=== PATIENT | male | born 2000 | race Caucasian/White ===

== ENCOUNTER 2023-02-09 21:04 | Emergency (ER) | payer BC, OTHER ==
[2023-02-09 21:07] VITALS: RESP 16; TEMP 98.7
[2023-02-09] MEDS ORDERED: BACITRACIN OINT 1 EACH PACKET TOPICAL ONE (22:25)
[2023-02-09] MEDS ORDERED: CEPHALEXIN 500 MG CAP PO STA (22:26)
--- NOTE | 2023-02-09 22:30 | ED ---
Lower Extremity Injury HPI - General Chief Complaint: Extremity Injury, Lower Stated Complaint: Left big toe infection Time Seen by Provider: 02/09/23 21:10 Source: patient Mode of arrival: ambulatory Limitations: no limitations - History of Present Illness Initial Comments: 22-year-old male presents to the emergency department reporting possible infect ion of his left great toe. States that the patient attempted to cut his nails a couple of days ago. Since then the patient has noted increasing redness, swelling and pain to the medial aspect of the left toe. He has been putting triple antibiotic ointment to the site without any improvement. He denies any injuries. No fevers. Has been obtaining pustular drainage from the site. No other alleviating, mind reader modifying factors - Related Data Previous Rx's Medication Instructions Recorded Bacitracin Zinc Oint 1 applic TOPICAL BID #28 gm 02/09/23 Cephalexin [Keflex] 500 mg PO Q6HR #28 cap 02/09/23 Allergies Allergy/AdvReac Type Severity Reaction Status Date / Time No Known Allergies Allergy Verified 02/09/23 21:07 Review of Systems ROS Statement: Those systems with pertinent positive or pertinent negative responses have been documented in the HPI. ROS Other: All systems not noted in ROS Statement are negative. General Exam Limitations: no limitations General appearance: alert, in no apparent distress Extremities exam: Present: other (Paronychia noted to the medial aspect of the left great toe. No bleeding. Mild pustular drainage. Nail intact) Neurological exam: Present: alert, oriented X3, CN II-XII intact Psychiatric exam: Present: normal affect, normal mood Skin exam: Present: warm, dry, intact, normal color. Absent: rash Course Vital Signs 02/09/23 02/09/23 21:05 22:55 Temperature 98.7 F Pulse Rate 74 78 Respiratory 16 16 Rate Blood Pressure 139/88 128/79 O2 Sat by Pulse 97 98 Oximetry Medical Decision Making - Medical Decision Making Was pt. sent in by a medical professional or institution (LEODAN Rodriguez, POURED WALL FOREMAN, urgent care, hospital, or intermediate...) When possible be specific @ -No Did you speak to anyone other than the patient for history (EMS, parent, family, police, friend...)? What history was obtained from this source @ -No Did you review nursing and triage notes (agree or disagree)? Why? @ -I reviewed and agree with nursing and triage notes Were old charts reviewed (outside hosp., previous admission, EMS record, old EKG, old radiological studies, urgent care reports/EKG's, intermediate records)? Report findings @ -No old charts were reviewed Differential Diagnosis (chest pain, altered mental status, abdominal pain women, abdominal pain men, vaginal bleeding, weakness, fever, dyspnea, syncope, headache, dizziness, GI bleed, back pain, seizure, CVA, palpatations, mental health, musculoskeletal)? @ -Paronychia, felon, cellulitis, ingrown nail EKG interpreted by me (3pts min.). @ -Not completed X-rays interpreted by me (1pt min.). @ -None done CT interpreted by me (1pt min.). @ -None done U/S interpreted by me (1pt. min.). @ -None done What testing was considered but not performed or refused? (CT, X-rays, U/S, labs)? Why? @ -None What meds were considered but not given or refused? Why? @ -None Did you discuss the management of the patient with other professionals (professionals i.e. , PA, POURED WALL FOREMAN, lab, RT, psych nurse, hospital social worker, node js developer, teacher, patrol community service officer, assistant case manager)? Give summary @ -No Was smoking cessation discussed for >3mins.? @ -No Was critical care preformed (if so, how long)? @ -No Were there social determinants of health that impacted care today? How? (Homelessness, low income, unemployed, alcoholism, drug addiction, transportation, low edu. Level, literacy, decrease access to med. care, snf, rehab)? @ -No Was there de-escalation of care discussed even if they declined (Discuss DNR or withdrawal of care, Hospice)? DNR status @ -No What co-morbidities impacted this encounter? (DM, HTN, Smoking, COPD, CAD, Cancer, CVA, ARF, Chemo, Hep., AIDS, mental health diagnosis, sleep apnea, morbid obesity)? @ -None Was patient admitted / discharged? Hospital course, mention meds given and route, prescriptions, significant lab abnormalities, going to OR and other pertinent info. @ -Upon arrival patient was placed in room 31. A thorough history and physical exam was performed. The digit was cleansed. I did use an 11 blade scalpel to attempt further drainage of the paronychia. I obtained a wound culture. Bacitracin is placed to the site. Patient will be discharged home with bacitracin and Keflex. Instructed to take the medications as directed. Recommended epsom salt foot soaks to be completed 3 times daily. He is given a postop shoe. Instructed to keep area clean and dry. Follow-up with podiatry for further management and return for any new or worsening symptoms. Patient was agreeable to this plan and he was discharged in stable condition Undiagnosed new problem with uncertain prognosis? @ -No Drug Therapy requiring intensive monitoring for toxicity (Heparin, Nitro, Insulin, Cardizem)? @ -No Were any procedures done? @ -No Diagnosis/symptom? @ -Acute paronychia left great toe Acute, or Chronic, or Acute on Chronic? @ -Acute Uncomplicated (without systemic symptoms) or Complicated (systemic symptoms)? @ -Uncomplicated Side effects of treatment? @ -No Exacerbation, Progression, or Severe Exacerbation? @ -No Poses a threat to life or bodily function? How? (Chest pain, [place], [place], pneumonia, PE, COPD, DKA, ARF, appy, cholecystitis, CVA, Diverticulitis, Homicidal, Suicidal, threat to staff... and all critical care pts) @ -No Disposition Clinical Impression: Paronychia Disposition: HOME SELF-CARE Condition: Stable Instructions (If sedation given, give patient instructions): Paronychia (ED) Additional Instructions: Take the antibiotics as directed. Use bacitracin to the site. Do epsom salt soaks 3 times daily for 10 minutes. Express the area to push out any pus. Keep the area clean. Follow up with the physical geographer for further treatment Prescriptions: Bacitracin Zinc Oint 1 applic TOPICAL BID #28 gm Cephalexin [Keflex] 500 mg PO Q6HR #28 cap Is patient prescribed a controlled substance at d/c from ED?: No Referrals: Marky Montes MD [Primary Care Provider] - 1-2 days Hamzah Maria DPM [Doctor of Osteopathic Medicine] - 1-2 days Time of Disposition: 22:30
[2023-02-09 22:56] VITALS: BP 128/79; PULSE 78
== END 2023-02-09 22:56 | disposition home or self-care (01) ==
LOC: EC 21:04
DX: L03.032 Cellulitis of left toe (principal); B95.61 Methicillin susceptible Staphylococcus aureus infection as the cause of diseases classified elsewhere
CPT/HCPCS: 87070; 87077; 87186; 87205; 99283

== ENCOUNTER 2024-06-29 22:02 | Emergency (ER) | payer BC ==
[2024-06-29 22:09] VITALS: BP 122/85; TEMP 97.5
[2024-06-29] MEDS: predniSONE 20 MG TAB PO STA (22:54)
[2024-06-29] MEDS: LORazepam 0.5 MG TAB PO STA (22:55)
--- NOTE | 2024-06-29 23:11 | ED ---
General Adult HPI - General Source: patient, RN notes reviewed, old records reviewed Mode of arrival: ambulatory Limitations: no limitations <Hamzah Anderson - Last Filed: 06/30/24 00:16> <Marvel Resendiz - Last Filed: 06/30/24 00:45> - General Chief complaint: Psychiatric Symptoms Stated complaint: Mental health Time Seen by Provider: 06/29/24 22:40 - History of Present Illness Initial comments: Patient is a 24-year-old male who presents emergency department complaining of nasal drainage ongoing for weeks which is causing his OCD to become more severe. His OCD has been more debilitating. States he is having issues just starting his day and getting out of bed as the postnasal drip is sending him spiraling. States this is somewhat chronic. Denies any cough or fevers. Denies any sick contacts. Does not follow-up with a psychiatrist or therapist. Has been compliant with medications. Presents with his mother over concern for his worsening OCD. He has not required inpatient psychiatric care in the past. Presents for further evaluation.Patient endorses passive suicidal ideations, paraphrasing him that it would be easier to manage if he did not wake up. (Hamzah Anderson) - Related Data Previous Rx's Medication Instructions Recorded Bacitracin Zinc Oint 1 applic TOPICAL BID #28 gm 02/09/23 Cephalexin [Keflex] 500 mg PO Q6HR #28 cap 02/09/23 predniSONE [Deltasone] 20 mg PO DAILY 4 Days #4 tab 06/30/24 Allergies Allergy/AdvReac Type Severity Reaction Status Date / Time No Known Allergies Allergy Verified 06/29/24 22:04 Review of Systems ROS Other: All systems not noted in ROS Statement are negative. <Hamzah Anderson - Last Filed: 06/30/24 00:16> ROS Other: All systems not noted in ROS Statement are negative. <Marvel Resendiz - Last Filed: 06/30/24 00:45> ROS Statement: Those systems with pertinent positive or pertinent negative responses have been documented in the HPI. Review of Systems: CONST: Denies fever EYES: Denies blurry vision ENT: Denies nasal congestion C/V: Denies Chest pain RESP: Denies shortness of breath GI: Denies abdominal pain : Denies dysuria SKIN: Denies rash. MSK: Denies joint pain. NEURO: Denies headache (JustinHamzah) Past Medical History Past Medical History: No Reported History History of Any Multi-Drug Resistant Organisms: None Reported Additional Past Surgical History / Comment(s): eye Past Psychological History: No Psychological Hx Reported Smoking Status: Never smoker Past Alcohol Use History: Occasional Past Drug Use History: Marijuana <Hamzah Anderson - Last Filed: 06/30/24 00:16> General Exam Limitations: no limitations <Hamzah Anderson - Last Filed: 06/30/24 00:16> - General Exam Comments Initial Comments: General: Appears anxious HEAD: Normal with no signs of head trauma. EYES: EOMI. ENT: Hearing grossly intact. Posterior oropharynx within normal limits. No sinus tenderness to palpation. Uvula is midline. No rhinorrhea. RESPIRATORY: No respiratory distress. Clear breath sounds bilaterally. No hypoxia. C/V: Regular rate and rhythm. S1 and S2 auscultated. ABD: Abdomen is nondistended. EXT: No obvious deformity. SKIN: No rashes or lesions observed on exposed skin. NEURO: Alert and oriented. (JustinHamzah) Course Vital Signs 06/29/24 22:03 Temperature 97.5 F L Pulse Rate 95 Respiratory 18 Rate Blood Pressure 122/85 O2 Sat by Pulse 100 Oximetry Medical Decision Making <Hamzah Anderson - Last Filed: 06/30/24 00:16> - Medical Decision Making Was pt. sent in by a medical professional or institution (LEODAN Rodriguez, MONEY LAUNDERING INVESTIGATOR, urgent care, hospital, or fpc...) When possible be specific @ -No Did you speak to anyone other than the patient for history (EMS, parent, family, police, friend...)? What history was obtained from this source @ -Patient's mother presents at bedside and assist with patient's past medical history. Did you review nursing and triage notes (agree or disagree)? Why? @ -I reviewed and agree with nursing and triage notes Were old charts reviewed (outside hosp., previous admission, EMS record, old EKG, old radiological studies, urgent care reports/EKG's, fpc records)? Report findings @ -No old charts were reviewed Differential Diagnosis (chest pain, altered mental status, abdominal pain women, abdominal pain men, vaginal bleeding, weakness, fever, dyspnea, syncope, headache, dizziness, GI bleed, back pain, seizure, CVA, palpatations, mental health, musculoskeletal)? @ -Differential Mental Health Depression, anxiety, bipolar, psychosis, schizophrenia, borderline personality, situational depression, adjustment disorder, behavioral disorder, brain tumor, malingering, substance abuse, encephalopathy, medication reaction, dementia, hypothyroidism, degenerative neurologic disorder, lupus.... This is not meant to be all-inclusive list EKG interpreted by me (3pts min.). @ -None done X-rays interpreted by me (1pt min.). @ -None done CT interpreted by me (1pt min.). @ -None done U/S interpreted by me (1pt. min.). @ -None done What testing was considered but not performed or refused? (CT, X-rays, U/S, labs)? Why? @ -None What meds were considered but not given or refused? Why? @ -None Did you discuss the management of the patient with other professionals (professionals i.e. , PA, MONEY LAUNDERING INVESTIGATOR, lab, RT, psych nurse, social service director, account processor, teacher, chief quality officer, case making machine operator)? Give summary @ -EPS notified of the consult Was smoking cessation discussed for >3mins.? @ -No Was critical care preformed (if so, how long)? @ -No Were there social determinants of health that impacted care today? How? (Homelessness, low income, unemployed, alcoholism, drug addiction, transportation, low edu. Level, literacy, decrease access to med. care, fpc, re hab)? @ -No Was there de-escalation of care discussed even if they declined (Discuss DNR or withdrawal of care, Hospice)? DNR status @ -No What co-morbidities impacted this encounter? (DM, HTN, Smoking, COPD, CAD, Cancer, CVA, ARF, Chemo, Hep., AIDS, mental health diagnosis, sleep apnea, morbid obesity)? @ -None Was patient admitted / discharged? Hospital course, mention meds given and route, prescriptions, significant lab abnormalities, going to OR and other pertinent info. @ -Patient presents with postnasal drip which is causing his OCD to spiral. Vitals are unremarkable. BAT is 0. UDS is pending. Patient's mother sitting with the patient. We will obtain viral swabs however patient is medically cleared for evaluation by psychiatry at this time. Disposition pending psychiatric evaluation. EPS notified of the consult. Patient will be given a dose of Ativan for his anxiety. Discussed his postnasal drip, as it is chronic is likely environmental, and patient may have allergies at his home. Patient will be given a steroid to see if it helps with his congestion. Undiagnosed new problem with uncertain prognosis? @ -No Drug Therapy requiring intensive monitoring for toxicity (Heparin, Nitro, Insulin, Cardizem)? @ -No Were any procedures done? @ -No (Hamzah Anderson) - Lab Data Lab Results 06/29/24 06/29/24 Range/Units 22:55 23:26 Urine Opiates Screen Not Detected (NotDetected) Ur Oxycodone Screen Not Detected (NotDetected) Urine Methadone Screen Not Detected (NotDetected) Ur Barbiturates Screen Not Detected (NotDetected) U Tricyclic Antidepress Not Detected (NotDetected) Ur Phencyclidine Scrn Not Detected (NotDetected) Ur Amphetamines Screen Not Detected (NotDetected) U Methamphetamines Scrn Not Detected (NotDetected) U Benzodiazepines Scrn Not Detected (NotDetected) Urine Cocaine Screen Not Detected (NotDetected) U Marijuana (THC) Screen Detected H (NotDetected) Influenza Type A (PCR) Not Detected (Not Detectd) Influenza Type B (PCR) Not Detected (Not Detectd) RSV (PCR) Not Detected (Not Detectd) SARS-CoV-2 (PCR) Not Detected (Not Detectd) Disposition <Hamzah Anderson - Last Filed: 06/30/24 00:16> Is patient prescribed a controlled substance at d/c from ED?: No <Marvel Resendiz - Last Filed: 06/30/24 00:45> Clinical Impression: Acute anxiety Disposition: HOME SELF-CARE Condition: Fair Instructions (If sedation given, give patient instructions): Stress (ED) Prescriptions: predniSONE [Deltasone] 20 mg PO DAILY 4 Days #4 tab Referrals: Marky Montes MD [Primary Care Provider] - 1-2 days
[2024-06-30 00:17] LABS: Amphetamine Screen,Urine Not Detected (NotDetected); Barbiturate Screen,Urine Not Detected (NotDetected); Benzodiazepines Screen,Urine Not Detected (NotDetected); Cocaine Screen,Urine Not Detected (NotDetected); Methadone Screen, Urine Not Detected (NotDetected); Opiate Screen,Urine Not Detected (NotDetected); Oxycodone Screen, Urine Not Detected (NotDetected); Phencyclidine Screen,Urine Not Detected (NotDetected); Tricyclic Antidepressant,Urine Not Detected (NotDetected); Urn Cannabinoid Scrn Detected (NotDetected)
[2024-06-30 00:52] VITALS: PULSE 90; RESP 15
== END 2024-06-30 00:52 | disposition home or self-care (01) ==
LOC: EC 22:02
DX: R45.851 Suicidal ideations (principal); F41.9 Anxiety disorder, unspecified; F42.9 Obsessive-compulsive disorder, unspecified
CPT/HCPCS: 99285 ×2; 82075; 80306; 87636; J7512

== ENCOUNTER 2024-07-02 11:25 | Emergency (ER) | payer BC ==
[2024-07-02 11:57] VITALS: TEMP 98.2
--- NOTE | 2024-07-02 12:26 | ED ---
General Adult HPI - General Chief complaint: Psychiatric Symptoms Stated complaint: Suicidal ideations Time Seen by Provider: 07/02/24 11:54 Source: patient, family, RN notes reviewed, old records reviewed Mode of arrival: ambulatory Limitations: no limitations - History of Present Illness Initial comments: 24-year-old male presenting for reevaluation. Patient has recent debilitating OCD with suicidal thoughts. He was seen in the emergency department 2 days prior. He was seen by his primary care provider yesterday and states that he was able to get both a evaluation with a therapist and a psychiatrist in the upcoming several days. He is having "loops" where he cannot do even the simplest task without fixating on it. He is having Isaiah thoughts without a specific plan. He was prescribed Xanax which has not helped. - Related Data Home Medications Medication Instructions Recorded Confirmed ALPRAZolam [Xanax] 0.25 mg PO DAILY PRN 07/02/24 07/02/24 PARoxetine HCL [Paxil] 40 mg PO DAILY 07/02/24 07/02/24 Allergies Allergy/AdvReac Type Severity Reaction Status Date / Time No Known Allergies Allergy Verified 07/02/24 13:30 Review of Systems ROS Statement: Those systems with pertinent positive or pertinent negative responses have been documented in the HPI. ROS Other: All systems not noted in ROS Statement are negative. Past Medical History Past Medical History: No Reported History History of Any Multi-Drug Resistant Organisms: None Reported Additional Past Surgical History / Comment(s): eye. wisdom teeth Past Psychological History: ADD/ADHD, Anxiety Smoking Status: Never smoker Past Alcohol Use History: Rare Past Drug Use History: Marijuana General Exam Limitations: no limitations General appearance: alert, other (unkempt) Head exam: Present: atraumatic, normocephalic Eye exam: Present: normal appearance, PERRL Respiratory exam: Present: normal lung sounds bilaterally. Absent: respiratory distress Cardiovascular Exam: Present: regular rate, normal rhythm GI/Abdominal exam: Present: soft. Absent: distended, tenderness Psychiatric exam: Present: depressed, flat affect, suicidal ideation Skin exam: Present: warm, dry, intact Course Vital Signs 07/02/24 11:47 Temperature 98.2 F Pulse Rate 81 Respiratory 18 Rate Blood Pressure 123/82 O2 Sat by Pulse 97 Oximetry Medical Decision Making - Medical Decision Making Was pt. sent in by a medical professional or institution (LEODAN Rodriguez, SALES LEDGER CLERK, urgent care, hospital, or [facility]...) When possible be specific @ -No Did you speak to anyone other than the patient for history (EMS, parent, family, police, friend...)? What history was obtained from this source @ -No Did you review nursing and triage notes (agree or disagree)? Why? @ -I reviewed and agree with nursing and triage notes Were old charts reviewed (outside hosp., previous admission, EMS record, old EKG, old radiological studies, urgent care reports/EKG's, [facility] records)? Report findings @ -No old charts were reviewed Differential Mental Health Depression, anxiety, bipolar, psychosis, schizophrenia, borderline personality, situational depression, adjustment disorder, behavioral disorder, brain tumor, malingering, substance abuse, encephalopathy, medication reaction, dementia, hypothyroidism, degenerative neurologic disorder, lupus.... This is not meant to be all-inclusive list EKG interpreted by me (3pts min.). @ -As above X-rays interpreted by me (1pt min.). @ -None done CT interpreted by me (1pt min.). @ -None done U/S interpreted by me (1pt. min.). @ -None done What testing was considered but not performed or refused? (CT, X-rays, U/S, labs)? Why? @ -None What meds were considered but not given or refused? Why? @ -None Did you discuss the management of the patient with other professionals (professionals i.e. LEODAN Rodriguez, SALES LEDGER CLERK, lab, RT, psych nurse, social science instructor, wire brush maker, teacher, airfield engineer officer, telephonic case manager)? Give summary @ -No Was smoking cessation discussed for >3mins.? @ -No Was critical care preformed (if so, how long)? @ -No Were there social determinants of health that impacted care today? How? (Homelessness, low income, unemployed, alcoholism, drug addiction, trans portation, low edu. Level, literacy, decrease access to med. care, long-term, rehab)? @ -No Was there de-escalation of care discussed even if they declined (Discuss DNR or withdrawal of care, Hospice)? DNR status @ -No What co-morbidities impacted this encounter? (DM, HTN, Smoking, COPD, CAD, Cancer, CVA, ARF, Chemo, Hep., AIDS, mental health diagnosis, sleep apnea, morbid obesity)? @ OCD Was patient admitted / discharged? Hospital course, mention meds given and route, prescriptions, significant lab abnormalities, going to OR and other pertinent info. @ -[24-year-old presents for psychiatric evaluation. Patient medically cleared and evaluated by EPS. [place] to be stable for discharge. He has an appointment with his new therapist and new psychiatrist this week. The on-call psychiatrist did recommend increasing his current psychiatric medication until that appointment. Patient stable for discharge at this time. Undiagnosed new problem with uncertain prognosis? @ -No Drug Therapy requiring intensive monitoring for toxicity (Heparin, Nitro, Insulin, Cardizem)? @ -No Were any procedures done? @ -No Diagnosis/symptom? @ -Anxiety, depression, OCD Acute, or Chronic, or Acute on Chronic? @ -Acute on chronic Uncomplicated (without systemic symptoms) or Complicated (systemic symptoms)? @ -Default Side effects of treatment? @ -No Exacerbation, Progression, or Severe Exacerbation? @ -No Poses a threat to life or bodily function? How? (Chest pain, [place], [place], pneumonia, PE, COPD, DKA, ARF, appy, cholecystitis, CVA, Diverticulitis, Homicidal, Suicidal, threat to staff... and all critical care pts) @ -[Low risk at this time - Lab Data Result diagrams: 07/02/24 12:32 07/02/24 12:32 Lab Results 07/02/24 07/02/24 12 Range/Units 12:32 12:32 12:32 WBC 8.2 (3.8-10.6) k/uL RBC 5.19 (4.30-5.90) m/uL Hgb 15.3 (13.0-17.5) gm/dL Hct 46.4 (39.0-53.0) % MCV 89.3 (80.0-100.0) fL MCH 29.5 (25.0-35.0) pg MCHC 33.1 (31.0-37.0) g/dL RDW 12.2 (11.5-15.5) % Plt Count 316 (150-450) k/uL MPV 8.1 Neutrophils % 71 % Lymphocytes % 18 % Monocytes % 8 % Eosinophils % 1 % Basophils % 0 % Neutrophils # 5.8 (1.3-7.7) k/uL Lymphocytes # 1.5 (1.0-4.8) k/uL Monocytes # 0.7 (0-1.0) k/uL Eosinophils # 0.1 (0-0.7) k/uL Basophils # 0.0 (0-0.2) k/uL Sodium (137-145) mmol/L Potassium (3.5-5.1) mmol/L Chloride (98-107) mmol/L Carbon Dioxide (22-30) mmol/L Anion Gap mmol/L BUN (9-20) mg/dL Creatinine (0.66-1.25) mg/dL Est GFR (CKD-EPI)AfAm (>60 ml/min/1.73 sqM) Est GFR (CKD-EPI)NonAf (>60 ml/min/1.73 sqM) Glucose (74-99) mg/dL Calcium (8.4-10.2) mg/dL Total Bilirubin (0.2-1.3) mg/dL AST (17-59) U/L ALT (4-49) U/L Alkaline Phosphatase (38-126) U/L Total Protein (6.3-8.2) g/dL Albumin (3.5-5.0) g/dL Urine Color Colorless Urine Appearance Clear (Clear) Urine pH 6.5 (5.0-8.0) Ur Specific [place] 1.005 (1.001-1.035) Urine Protein Negative (Negative) Urine Glucose (UA) Negative (Negative) Urine Ketones Negative (Negative) Urine Blood Negative (Negative) Urine Nitrite Negative (Negative) Urine Bilirubin Negative (Negative) Urine Urobilinogen <2.0 (<2.0) mg/dL Ur Leukocyte Esterase Negative (Negative) Urine Opiates Screen Not Detected (NotDetected) Ur Oxycodone Screen Not Detected (NotDetected) Urine Methadone Screen Not Detected (NotDetected) Ur Barbiturates Screen Not Detected (NotDetected) U Tricyclic Antidepress Not Detected (NotDetected) Ur Phencyclidine Scrn Not Detected (NotDetected) Ur Amphetamines Screen Not Detected (NotDetected) U Methamphetamines Scrn Not Detected (NotDetected) U Benzodiazepines Scrn Detected H (NotDetected) Urine Cocaine Screen Not Detected (NotDetected) U Marijuana (THC) Screen Detected H (NotDetected) 07/02/24 Range/Units 12:32 WBC (3.8-10.6) k/uL RBC (4.30-5.90) m/uL Hgb (13.0-17.5) gm/dL Hct (39.0-53.0) % MCV (80.0-100.0) fL MCH (25.0-35.0) pg MCHC (31.0-37.0) g/dL RDW (11.5-15.5) % Plt Count (150-450) k/uL MPV Neutrophils % % Lymphocytes % % Monocytes % % Eosinophils % % Basophils % % Neutrophils # (1.3-7.7) k/uL Lymphocytes # (1.0-4.8) k/uL Monocytes # (0-1.0) k/uL Eosinophils # (0-0.7) k/uL Basophils # (0-0.2) k/uL Sodium 137 (137-145) mmol/L Potassium 3.8 (3.5-5.1) mmol/L Chloride 104 (98-107) mmol/L Carbon Dioxide 28 (22-30) mmol/L Anion Gap 5 mmol/L BUN 11 (9-20) mg/dL Creatinine 0.94 (0.66-1.25) mg/dL Est GFR (CKD-EPI)AfAm >90 (>60 ml/min/1.73 sqM) Est GFR (CKD-EPI)NonAf >90 (>60 ml/min/1.73 sqM) Glucose 101 H (74-99) mg/dL Calcium 9.8 (8.4-10.2) mg/dL Total Bilirubin 0.6 (0.2-1.3) mg/dL AST 23 (17-59) U/L ALT 20 (4-49) U/L Alkaline Phosphatase 61 (38-126) U/L Total Protein 8.1 (6.3-8.2) g/dL Albumin 5.3 H (3.5-5.0) g/dL Urine Color Urine Appearance (Clear) Urine pH (5.0-8.0) Ur Specific [place] (1.001-1.035) Urine Protein (Negative) Urine Glucose (UA) (Negative) Urine Ketones (Negative) Urine Blood (Negative) Urine Nitrite (Negative) Urine Bilirubin (Negative) Urine Urobilinogen (<2.0) mg/dL Ur Leukocyte Esterase (Negative) Urine Opiates Screen (NotDetected) Ur Oxycodone Screen (NotDetected) Urine Methadone Screen (NotDetected) Ur Barbiturates Screen (NotDetected) U Tricyclic Antidepress (NotDetected) Ur Phencyclidine Scrn (NotDetected) Ur Amphetamines Screen (NotDetected) U Methamphetamines Scrn (NotDetected) U Benzodiazepines Scrn (NotDetected) Urine Cocaine Screen (NotDetected) U Marijuana (THC) Screen (NotDetected) Disposition Clinical Impression: Acute anxiety, Depression Disposition: HOME SELF-CARE Condition: Fair Instructions (If sedation given, give patient instructions): Depression (ED), Anxiety (ED) Is patient prescribed a controlled substance at d/c from ED?: No Referrals: Marky Montes MD [Primary Care Provider] - 1-2 days Time of Disposition: 14:09
[2024-07-02 12:42] LABS: Basophils % (A) 0 %; Eosinophils # (A) 0.1 k/uL (0-0.7); Eosinophils % (A) 1 %; HCT 46.4 % (39.0-53.0); HGB 15.3 gm/dL (13.0-17.5); Lymphocytes # (A) 1.5 k/uL (1.0-4.8); Lymphocytes % (A) 18 %; MCH 29.5 pg (25.0-35.0); MCHC 33.1 g/dL (31.0-37.0); MCV 89.3 fL (80.0-100.0); Mean Platelet Volume 8.1; Monocytes # (A) 0.7 k/uL (0-1.0); Monocytes % (A) 8 %; Neutrophils # (A) 5.8 k/uL (1.3-7.7); Neutrophils % (A) 71 %; Platelet Count 316 k/uL (150-450); RBC 5.19 m/uL (4.30-5.90); RDW 12.2 % (11.5-15.5); WBC 8.2 k/uL (3.8-10.6)
[2024-07-02 12:45] LABS: Appearance,Urine Clear (Clear); Bilirubin,Urine Negative (Negative); Blood,Urine Negative (Negative); Color,Urine Colorless; Glucose,Urine (UA) Negative (Negative); Ketones,Urine Negative (Negative); Leukocyte Esterase,Urine Negative (Negative); Nitrite,Urine Negative (Negative); PH, Urine 6.5 (5.0-8.0); Protein,Urine Negative (Negative); Specific Gravity,Urine 1.005 (1.001-1.035); Urobilinogen,Urine <2.0 mg/dL (<2.0)
[2024-07-02 12:53] LABS: ALT 20 U/L (4-49); AST 23 U/L (17-59); African American GFR (CKD) >90 (>60 ml/min/1.73 sqM); Albumin 5.3 g/dL (3.5-5.0); Alkaline Phosphatase 61 U/L (38-126); Anion Gap 5 mmol/L; Blood Urea Nitrogen 11 mg/dL (9-20); Calcium 9.8 mg/dL (8.4-10.2); Carbon Dioxide 28 mmol/L (22-30); Chloride 104 mmol/L (98-107); Glucose 101 mg/dL (74-99); Non-African American GFR(CKD) >90 (>60 ml/min/1.73 sqM); Potassium 3.8 mmol/L (3.5-5.1); Sodium 137 mmol/L (137-145); Total Bilirubin 0.6 mg/dL (0.2-1.3); Total Protein 8.1 g/dL (6.3-8.2)
[2024-07-02 12:59] LABS: Amphetamine Screen,Urine Not Detected (NotDetected); Barbiturate Screen,Urine Not Detected (NotDetected); Cocaine Screen,Urine Not Detected (NotDetected); Methadone Screen, Urine Not Detected (NotDetected); Opiate Screen,Urine Not Detected (NotDetected); Oxycodone Screen, Urine Not Detected (NotDetected); Phencyclidine Screen,Urine Not Detected (NotDetected); Tricyclic Antidepressant,Urine Not Detected (NotDetected); Urn Cannabinoid Scrn Detected (NotDetected)
[2024-07-02 13:00] LABS: Benzodiazepines Screen,Urine Detected (NotDetected)
[2024-07-02 14:42] VITALS: BP 131/81; PULSE 65; RESP 20
== END 2024-07-02 14:41 | disposition home or self-care (01) ==
LOC: EC 11:25
DX: F32.A Depression, unspecified (principal); F41.9 Anxiety disorder, unspecified; F42.9 Obsessive-compulsive disorder, unspecified; F12.90 Cannabis use, unspecified, uncomplicated
CPT/HCPCS: 36415; 80053; 80306; 81003; 82075; 85025; 99285

== ENCOUNTER 2024-09-07 15:55 | Inpatient (IN) | payer BC ==
--- NOTE | 2024-09-07 16:25 | ED ---
General Adult HPI - General Chief complaint: Psychiatric Symptoms Stated complaint: mental health Time Seen by Provider: 09/07/24 16:05 Source: patient Mode of arrival: ambulatory Limitations: no limitations - History of Present Illness Initial comments: 24-year-old male presenting with chief complaint of suicidal ideation. Patient reports history of OCD, he states that doing basic tasks takes him an extremely long time and reports "I cannot live like this". States that he has recently been thinking of a plan to take his life. He denies any homicidal ideation. No visual or auditory hallucinations. No alcohol or drug use. Denies any physical complaints today. - Related Data Home Medications Medication Instructions Recorded Confirmed fluvoxaMINE MALEATE [Luvox] 100 mg PO HS 09/07/24 09/07/24 risperiDONE [RisperDAL] 1 mg PO BID 09/07/24 09/07/24 Allergies Allergy/AdvReac Type Severity Reaction Status Date / Time No Known Allergies Allergy Verified 09/07/24 17:35 Review of Systems ROS Statement: Those systems with pertinent positive or pertinent negative responses have been documented in the HPI. ROS Other: All systems not noted in ROS Statement are negative. Past Medical History Past Medical History: No Reported History History of Any Multi-Drug Resistant Organisms: None Reported Additional Past Surgical History / Comment(s): eye. wisdom teeth Past Psychological History: ADD/ADHD, Anxiety Smoking Status: Never smoker Past Alcohol Use History: Rare Past Drug Use History: Marijuana General Exam Limitations: no limitations General appearance: alert, in no apparent distress Head exam: Present: atraumatic, normocephalic, normal inspection Eye exam: Present: normal appearance, EOMI Neck exam: Present: normal inspection. Absent: meningismus Respiratory exam: Absent: respiratory distress Cardiovascular Exam: Present: regular rate Neurological exam: Present: alert, oriented X3 Psychiatric exam: Present: suicidal ideation. Absent: homicidal ideation Skin exam: Present: normal color Course Vital Signs 09/07/24 15:56 Temperature 97.8 F Pulse Rate 90 Respiratory 16 Rate Blood Pressure 113/74 O2 Sat by Pulse 100 Oximetry Medical Decision Making - Medical Decision Making Was pt. sent in by a medical professional or institution (, PA, ACID TENDER, urgent care, hospital, or [facility]...) When possible be specific @ -No Did you speak to anyone other than the patient for history (EMS, parent, family, police, friend...)? What history was obtained from this source @ -No Did you review nursing and triage notes (agree or disagree)? Why? @ -I reviewed and agree with nursing and triage notes Were old charts reviewed (outside hosp., previous admission, EMS record, old EKG, old radiological studies, urgent care reports/EKG's, [facility] records)? Report findings @ -No old charts were reviewed Differential Diagnosis (chest pain, altered mental status, abdominal pain women, abdominal pain men, vaginal bleeding, weakness, fever, dyspnea, syncope, headache, dizziness, GI bleed, back pain, seizure, CVA, palpatations, mental health, musculoskeletal)? @ -Differential Mental Health Depression, anxiety, bipolar, psychosis, schizophrenia, borderline personality, situational depression, adjustment disorder, behavioral disorder, brain tumor, malingering, substance abuse, encephalopathy, medication reaction, dementia, hypothyroidism, degenerative neurologic disorder, lupus.... This is not meant to be all-inclusive list EKG interpreted by me (3pts min.). @ -As above X-rays interpreted by me (1pt min.). @ -None done CT interpreted by me (1pt min.). @ -None done U/S interpreted by me (1pt. min.). @ -None done What testing was considered but not performed or refused? (CT, X-rays, U/S, labs)? Why? @ -None What meds were considered but not given or refused? Why? @ -None Did you discuss the management of the patient with other professionals (professionals i.e. , PA, ACID TENDER, lab, RT, psych nurse, director of social work, manager entry, teacher, chief marketing officer, caser in)? Give summary @ -With EPS nurse who recommends admission Was smoking cessation discussed for >3mins.? @ -No Was critical care preformed (if so, how long)? @ -No Were there social determinants of health that impacted care today? How? (Homelessness, low income, unemployed, alcoholism, drug addiction, transportation, low edu. Level, literacy, decrease access to med. care, halfway, rehab)? @ -No Was there de-escalation of care discussed even if they declined (Discuss DNR or withdrawal of care, Hospice)? DNR status @ -No What co-morbidities impacted this encounter? (DM, HTN, Smoking, COPD, CAD, Cancer, CVA, ARF, Chemo, Hep., AIDS, mental health diagnosis, sleep apnea, morbid obesity)? @ -None Was patient admitted / discharged? Hospital course, mention meds given and route, prescriptions, significant lab abnormalities, going to OR and other pertinent info. @ -24-year-old male presenting with suicidal ideation. States that his OCD is so significant that it is leading him to consider suicide, he has been forming plans as well. No homicidal ideation. Patient is medically cleared and evaluated by EPS. They determined the patient needs criteria for admission. Patient is agreeable with this plan. My attending is Dr. Resendiz Undiagnosed new problem with uncertain prognosis? @ -No Drug Therapy requiring intensive monitoring for toxicity (Heparin, Nitro, Insulin, Cardizem)? @ -No Were any procedures done? @ -No Diagnosis/symptom? @ -Suicidal ideation Acute, or Chronic, or Acute on Chronic? @ -Acute Uncomplicated (without systemic symptoms) or Complicated (systemic symptoms)? @ -Complicated Side effects of treatment? @ -No Exacerbation, Progression, or Severe Exacerbation? @ -No Poses a threat to life or bodily function? How? (Chest pain, [place], [place], pneumonia, PE, COPD, DKA, ARF, appy, cholecystitis, CVA, Diverticulitis, Homicidal, Suicidal, threat to staff... and all critical care pts) @ -Yes - Lab Data Lab Results 09/07/24 09/07/24 Range/Units 16:00 16:00 Urine Opiates Screen Not Detected (NotDetected) Ur Oxycodone Screen Not Detected (NotDetected) Urine Methadone Screen Not Detected (NotDetected) Ur Barbiturates Screen Not Detected (NotDetected) U Tricyclic Antidepress Not Detected (NotDetected) Ur Phencyclidine Scrn Not Detected (NotDetected) Ur Amphetamines Screen Not Detected (NotDetected) U Methamphetamines Scrn Not Detected (NotDetected) U Benzodiazepines Scrn Detected H (NotDetected) Urine Cocaine Screen Not Detected (NotDetected) U Marijuana (THC) Screen Detected H (NotDetected) SARS-CoV-2 (PCR) Not Detected (Not Detectd) Disposition Clinical Impression: Suicidal ideation Disposition: ADMITTED IP TO THIS HOSP Condition: Fair Time of Disposition: 17:56
[2024-09-07 17:04] LABS: Amphetamine Screen,Urine Not Detected (NotDetected); Barbiturate Screen,Urine Not Detected (NotDetected); Benzodiazepines Screen,Urine Detected (NotDetected); Cocaine Screen,Urine Not Detected (NotDetected); Methadone Screen, Urine Not Detected (NotDetected); Opiate Screen,Urine Not Detected (NotDetected); Oxycodone Screen, Urine Not Detected (NotDetected); Phencyclidine Screen,Urine Not Detected (NotDetected); Tricyclic Antidepressant,Urine Not Detected (NotDetected); Urn Cannabinoid Scrn Detected (NotDetected)
[2024-09-07] MEDS: LORazepam 1 MG TAB PO STA (19:47)
[2024-09-07] MEDS: HALOPERIDOL LACTATE 5 MG/ML 1 ML VIAL IM STA (20:37)
[2024-09-07] MEDS: diphenhydrAMINE 50 MG/ML 1 ML VIAL IM STA (20:37)
[2024-09-08] MEDS ORDERED: MAGNESIUM HYDROXIDE 2,400 MG/30 ML CUP PO PRN (08:58)
[2024-09-08] MEDS ORDERED: MAG HYDROX/AL HYDROX/SIMETH 355 ML BOTTLE PO PRN (08:58)
[2024-09-08] MEDS ORDERED: ACETAMINOPHEN TAB 325 MG TAB PO PRN (08:58)
[2024-09-08] MEDS ORDERED: IBUPROFEN 600 MG TAB PO PRN (08:58)
[2024-09-08] MEDS ORDERED: LORazepam 1 MG TAB PO PRN (09:03)
[2024-09-08] MEDS ORDERED: LORazepam 2 MG/ML INJ IM PRN (09:03)
[2024-09-08] MEDS ORDERED: haloperidoL 5 MG TAB PO PRN (09:03)
[2024-09-08] MEDS ORDERED: HALOPERIDOL LACTATE 5 MG/ML 1 ML VIAL IM PRN (09:03)
[2024-09-08] MEDS: risperiDONE 1 MG TAB PO SCH (09:50)
[2024-09-08 10:27] LABS: Basophils % (A) 0 %; Eosinophils # (A) 0.1 k/uL (0-0.7); Eosinophils % (A) 2 %; HCT 46.8 % (39.0-53.0); HGB 14.6 gm/dL (13.0-17.5); Lymphocytes # (A) 1.3 k/uL (1.0-4.8); Lymphocytes % (A) 20 %; MCH 28.8 pg (25.0-35.0); MCHC 31.1 g/dL (31.0-37.0); MCV 92.6 fL (80.0-100.0); Mean Platelet Volume 8.1; Monocytes # (A) 0.5 k/uL (0-1.0); Monocytes % (A) 8 %; Neutrophils # (A) 4.2 k/uL (1.3-7.7); Neutrophils % (A) 68 %; Platelet Count 225 k/uL (150-450); RBC 5.06 m/uL (4.30-5.90); RDW 12.4 % (11.5-15.5); WBC 6.2 k/uL (3.8-10.6)
[2024-09-08 10:44] LABS: ALT 27 U/L (4-49); AST 36 U/L (17-59); African American GFR (CKD) >90 (>60 ml/min/1.73 sqM); Albumin 4.9 g/dL (3.5-5.0); Alkaline Phosphatase 50 U/L (38-126); Anion Gap 9 mmol/L; Bilirubin, Delta 0.2 mg/dL (0.0-0.2); Bilirubin,Unconjugated 0.5 mg/dL (0.0-1.1); Blood Urea Nitrogen 15 mg/dL (9-20); Calcium 9.5 mg/dL (8.4-10.2); Carbon Dioxide 29 mmol/L (22-30); Chloride 101 mmol/L (98-107); Glucose 81 mg/dL (74-99); Non-African American GFR(CKD) >90 (>60 ml/min/1.73 sqM); Potassium 4.3 mmol/L (3.5-5.1); Sodium 139 mmol/L (137-145); Total Bilirubin 0.7 mg/dL (0.2-1.3); Total Protein 7.6 g/dL (6.3-8.2)
--- NOTE | 2024-09-08 13:30 | P.HP ---
Psychiatric H&P - . H&P Date: 09/08/24 History & Physical: Allergies Allergy/AdvReac Type Severity Reaction Status Date / Time No Known Allergies Allergy Verified 09/07/24 17:35 Vital Signs Temp 97.4 F L 09/08/24 10:37 Pulse 98 09/08/24 10:37 Resp 16 09/08/24 10:37 BP 127/80 09/08/24 10:37 Pulse Ox 99 09/08/24 10:37 FiO2 Intake & Output 09/07/24 09/08/24 09/08/24 18:59 06:59 18:59 Weight 65.771 kg 74.707 kg Laboratory Last Values WBC 6.2 k/uL (3.8-10.6) 09/08/24 09:55 RBC 5.06 m/uL (4.30-5.90) 09/08/24 09:55 Hgb 14.6 gm/dL (13.0-17.5) 09/08/24 09:55 Hct 46.8 % (39.0-53.0) 09/08/24 09:55 MCV 92.6 fL (80.0-100.0) 09/08/24 09:55 MCH 28.8 pg (25.0-35.0) 09/08/24 09:55 MCHC 31.1 g/dL (31.0-37.0) 09/08/24 09:55 RDW 12.4 % (11.5-15.5) 09/08/24 09:55 Plt Count 225 k/uL (150-450) 09/08/24 09:55 MPV 8.1 09/08/24 09:55 Neutrophils % 68 % 09/08/24 09:55 Lymphocytes % 20 % 09/08/24 09:55 Monocytes % 8 % 09/08/24 09:55 Eosinophils % 2 % 09/08/24 09:55 Basophils % 0 % 09/08/24 09:55 Neutrophils # 4.2 k/uL (1.3-7.7) 09/08/24 09:55 Lymphocytes # 1.3 k/uL (1.0-4.8) 09/08/24 09:55 Monocytes # 0.5 k/uL (0-1.0) 09/08/24 09:55 Eosinophils # 0.1 k/uL (0-0.7) 09/08/24 09:55 Basophils # 0.0 k/uL (0-0.2) 09/08/24 09:55 Sodium 139 mmol/L (137-145) 09/08/24 09:55 Potassium 4.3 mmol/L (3.5-5.1) 09/08/24 09:55 Chloride 101 mmol/L (98-107) 09/08/24 09:55 Carbon Dioxide 29 mmol/L (22-30) 09/08/24 09:55 Anion Gap 9 mmol/L 09/08/24 09:55 BUN 15 mg/dL (9-20) 09/08/24 09:55 Creatinine 0.98 mg/dL (0.66-1.25) 09/08/24 09:55 Est GFR (CKD-EPI)AfAm >90 (>60 ml/min/1.73 sqM) 09/08/24 09:55 Est GFR (CKD-EPI)NonAf >90 (>60 ml/min/1.73 sqM) 09/08/24 09:55 Glucose 81 mg/dL (74-99) 09/08/24 09:55 Calcium 9.5 mg/dL (8.4-10.2) 09/08/24 09:55 Total Bilirubin 0.7 mg/dL (0.2-1.3) 09/08/24 09:55 Conjugated Bilirubin 0.0 mg/dL (0.0-0.3) 09/08/24 09:55 Unconjugated Bilirubin 0.5 mg/dL (0.0-1.1) 09/08/24 09:55 Delta Bilirubin 0.2 mg/dL (0.0-0.2) 09/08/24 09:55 AST 36 U/L (17-59) 09/08/24 09:55 ALT 27 U/L (4-49) 09/08/24 09:55 Alkaline Phosphatase 50 U/L (38-126) 09/08/24 09:55 Total Protein 7.6 g/dL (6.3-8.2) 09/08/24 09:55 Albumin 4.9 g/dL (3.5-5.0) 09/08/24 09:55 TSH 2.030 mIU/L (0.465-4.680) 09/08/24 09:55 Urine Opiates Screen Not Detected (NotDetected) 09/07/24 16:00 Ur Oxycodone Screen Not Detected (NotDetected) 09/07/24 16:00 Urine Methadone Screen Not Detected (NotDetected) 09/07/24 16:00 Ur Barbiturates Screen Not Detected (NotDetected) 09/07/24 16:00 U Tricyclic Antidepress Not Detected (NotDetected) 09/07/24 16:00 Ur Phencyclidine Scrn Not Detected (NotDetected) 09/07/24 16:00 Ur Amphetamines Screen Not Detected (NotDetected) 09/07/24 16:00 U Methamphetamines Scrn Not Detected (NotDetected) 09/07/24 16:00 U Benzodiazepines Scrn Detected (NotDetected) H 09/07/24 16:00 Urine Cocaine Screen Not Detected (NotDetected) 09/07/24 16:00 U Marijuana (THC) Screen Detected (NotDetected) H 09/07/24 16:00 SARS-CoV-2 (PCR) Not Detected (Not Detectd) 09/07/24 16:00 09/08/24 13:20 IDENTIFYING DATA: Patient is a 24-year-old male, employed, living with parents CHIEF COMPLAINT: SI HPI: Patient presented to the hospital with suicidal ideations. Per EPS, "pt states he came to ER because he was experiencing "extreme wanting to go through with suicide." pt presents after returning home to live with parents yesterday (09/06/24). pt had moved to [place] to live with his significant other, but [place]. pt states that he moved back with family when OCD symptoms began worsening. pt states that he has been experiencing worsening depressive symptoms for the past couple of weeks. pt reports that he has been having intermittent SI during this time, but that the past 3 days have become significantly worse. pt reports that he began to contemplate plans in the past day or two. pt continues to report SI with multiple plans including jumping, OD, car crash, and firearm. pt denies HI and hallucinations. pt reports poor sleep and poor appetite. pt states he is currently eating about 2 meals per day and is eating significantly smaller portions because he cannot focus on eating. No delusional thoughts verbalized. pt cooperative with assessment." patient seen and evaluated on the unit and was agreeable with speaking to entry writer in office. He states he recently moved back to [place] from [place] due to worsening symptoms. He states moving to [place] to be with his girlfriend while she starts her grad school, stating he had a job lined up for him there however he was having difficulties with the amount of time spent doing his OCD rituals that it was becoming overwhelming doing his day-to-day. He mentions moving back here with his parents after staying there for about 4 months. He mentions OCD has worsened since moving to [place] described as having to swallow both before and after he has to do something, explaining that this must have been just right in order for him to feel well. He mentions if he does not swallow at the precise moment, he feels anxious, begins panicking, frustrated. He mentions recently seeing a therapist through a website however once he moved to [place] he was unable to keep these appointments. He mentions being off of his Luvox for several days as he ran out of the prescription. He does see a psychiatrist for this medication. Patient denies any suicidal or homicidal ideations intent or plan. At this time patient denies any auditory or visual hallucinations. Patient denies any flight of ideas racing thoughts and increased in goal directed behavior. Patient admits to using occasional alcohol, denying any cannabis or nicotine. PAST PSYCHIATRIC HISTORY: Patient has a history of OCD. Patient is currently on Luvox 100 mg at bedtime, Risperdal 1 mg twice daily. He has tried Paxil and BuSpar previously. Patient denies any previous psychiatric hospitalizations. Patient sees Dr. Neff at [facility]. Patient denies any history of suicide attempts in the past. PMH: as per ER note ALLERGIES: as per EMR SUBSTANCE USE HISTORY: As per HPI FAMILY PSYCHIATRIC/SUBSTANCE USE HISTORY: Patient states his great grandmother had depression and that his uncle had depression and attempted suicide. SOCIAL HISTORY: Patient was born and raised in [place]. He currently lives with his mother, is single and has no children. 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 He completed his bachelor's. MENTAL STATUS EXAM: General Appearance: Patient appears to be stated age is alert, directable, and attempts to cooperate. Patient appears to have good hygiene and grooming. Behavior: Patient is seated without any agitated behavior. Speech: Patient's speech is fluent and nonpressured. Mood/Affect: Patient reports their mood is depressed, affect is congruent and constricted. Suicidality/Homicidality: Patient denies having any homicidal ideation intent or plan. Denies any suicidal ideations intent or plan Perceptions: Patient denies any visual hallucinations and denies any auditory hallucinations Though content/process: There is no evidence of any delusional thought content and thought process is linear and goal-directed. Memory and concentration: AOX3, grossly intact for the purposes of this session. Can spell "WORLD" backwards Judgment and insight: Fair STRENGTHS/WEAKNESSES: strength is that patient is resilient, has family support, and therapy. Weakness is that patient has poor judgment and is impulsive INTELLECT: Above average IMPRESSIONS: Major depressive disorder, recurrent OCD Rule out cannabis use disorder PLAN: -Patient is admitted under voluntary status to MHU for stabilization of psychiatric symptoms and safety. Patient has signed adult voluntary form and medication consent and is placed in patient's chart. -Medications : Restart Luvox at 100 mg at bedtime for depression/OCD, discontinue Risperdal 1 mg twice daily, add Abilify 5 mg at bedtime as an adjunct -Ativan and Haldol PRN for agitation/aggression -Will offer patient subtance use rehab -Patient was informed of the risks, benefits and side effects of the medication and patient verbally consented to taking the medications. Patient signed med consent form and was placed in chart. -Internal Medicine consult to perform medical evaluation and physical. -NRT -not needed as patient does not smoke -SW on board for discharge planning. Encourage patient to participate in groups to work on coping skills. Anticipate discharge in 3 days back home with parents
[2024-09-08 16:32] LABS: Chol/HDL Ratio 2.23 Ratio; LDL Cholesterol,Calculated 93.7 mg/dL (0.0-131.0); VLDL Calculation 15.48 mg/dL (5.00-40.00)
[2024-09-08] MEDS: traZODone HCL 50 MG TAB PO SCH (21:06)
[2024-09-08] MEDS: ARIPiprazole 5 MG TAB PO SCH (21:06)
[2024-09-09] MEDS ORDERED: hydrOXYzine pamoate 25 MG CAP PO PRN (13:03)
--- NOTE | 2024-09-09 13:23 | P.PN ---
Progress Note - Text Progress Note Date: 09/09/24 Interval History: Patient was seen in his room and was directable and agreeable to speak with wr iter in the office. Patient appeared anxious, restless. He mentioned feeling anxious regarding talking to me and being here for several weeks. Patient has been active in groups, goal oriented. He spoke to his mom yesterday. He reports sleeping well however does mention worsening in his OCD related to being anxious and here in the hospital. At this time patient denies any suicidal or homicidal ideations, intent or plan. Patient denies any auditory, visual hallucinations and denies any paranoia or delusions. Patient denies any side effects from the medications and has been compliant with meds. Mental Status Exam: General Appearance: Patient appears to be stated age is alert, directable, and cooperative. He has fair grooming and hygiene Behavior: There is evidence of psychomotor restlessness Speech: Patient's speech is fluent and nonpressured. Mood/Affect: Mood is improving mildly, affect is congruent and blunted. Suicidality/Homicidality: Patient denies having any suicidal or homicidal ideation intent or plan. Perceptions: Patient denies any visual hallucinations and denies any auditory hallucinations Though content/process: There is no evidence of any delusional thought content and thought process is linear and goal-directed. Memory and concentration: AOX3, grossly intact for the purposes of this session Judgment and insight: Improving mildly Assessment Major depressive disorder, recurrent OCD Rule out cannabis use disorder Plan: -Patient continues to meet criteria for inpatient psychiatric admission for symptom stabilization and safety. Patient has signed adult voluntary form and medication consent and was placed in patient's chart. -Medications: Increase Luvox to 150 mg at bedtime for depression/OCD, continue Abilify 5 mg at bedtime as an adjunct, add hydroxyzine 50 mg as needed for anxiety -When necessary Ativan and Haldol for agitation/aggression. -Labs: Reviewed -SW on board for discharge planning. Encouraged the patient to participate in milieu. Anticipate discharge back home with parents on
--- NOTE | 2024-09-09 16:55 | P.MDCNMH ---
History of Present Illness H&P Date: 09/09/24 Patient is a 24-year-old male with major depressive disorder currently in behavioral health unit. [facility] [place] physicians consulted for medical management. Temperature 97.8, pulse 90, respiratory 16, blood pressure 113/74, saturating 100% on room air. WBC 6.2, hemoglobin 14.6, platelet 225, creatinine 0.98, TSH 2.03, total cholesterol 198, LDL 93.7, urine toxicology positive for benzos and marijuana, COVID-19 negative, A1c 5.5. Denies any chest pain, shortness of breath, abdominal pain, nausea, vomiting, urinary or bowel complaints. Pertinent positives and negatives as discussed in HPI, a complete review of systems was performed and all other systems are negative. Patient seen and examined at bedside. Vital signs reviewed General: nontoxic, no distress, appears at stated age Derm: warm, dry Head: atraumatic, normocephalic, symmetric Eyes: EOMI, no lid lag, anicteric sclera, pupils equal round reactive to light ENT: Nose and ears atraumatic Neck: No thyromegaly, supple Mouth: no lip lesion, mucus membranes moist Cardiovascular: S1S2 reg, no murmur, no edema Lungs: clear to auscultation bilateral, no rhonchi, no rales, no wheeze, no accessory muscle use Abdominal: soft, nontender to palpation, no guarding, no appreciable organomegaly Ext: no gross muscle atrophy, muscle strength muscle strength 5 out of 5 in all 4 extremities, no contractures Neuro: CN II-XII grossly intact Psych: Alert, oriented, appropriate affect Assessment/Plan: Active: Major depressive disorder -Management per psychiatry Marijuana use disorder -Counseled on cessation Labs and vital signs reviewed as above Thank you for allowing us to participate in the care of this pleasant patient. Do not hesitate to contact us with questions. Someone can be reached from the [facility] [place] [facility] hospitalist group all hours of the day at [phone] or via [facility]. Past Medical History Past Medical History: No Reported History History of Any Multi-Drug Resistant Organisms: None Reported Additional Past Surgical History / Comment(s): eye. wisdom teeth Past Psychological History: ADD/ADHD, Anxiety Additional Psychological History / Comment(s): OCD Smoking Status: Never smoker Past Alcohol Use History: Rare Past Drug Use History: Marijuana Medications and Allergies Home Medications Medication Instructions Recorded Confirmed Type fluvoxaMINE MALEATE [Luvox] 100 mg PO HS 09/07/24 09/07/24 History risperiDONE [RisperDAL] 1 mg PO BID 09/07/24 09/07/24 History Allergies Allergy/AdvReac Type Severity Reaction Status Date / Time No Known Allergies Allergy Verified 09/07/24 17:35 Physical Exam Vitals: Vital Signs Temp Pulse Resp BP Pulse Ox 09/09/24 09:00 98.6 F 128 H 113/64 98 09/08/24 21:08 98.0 F 65 16 98/65 99 Cranial Nerve Examination - Cranial Nerves Cranial Nerve II- Optic: Intact Cranial Nerve III- Oculomotor: Intact Cranial Nerve IV- Trochlear: Intact Cranial Nerve V- Trigeminal: Intact Cranial Nerve - Abducens: Intact Cranial Nerve VII- Facial: Intact Cranial Nerve VIII- Auditory: Intact Cranial Nerve IX- Glossopharyngeal: Intact Cranial Nerve X- Vagus: Intact Cranial Nerve XI- Accessory: Intact Cranial Nerve XII- Hypoglossal: Intact Results CBC & Chem 7: 09/08/24 09:55 09/08/24 09:55 Labs: Abnormal Lab Results - Last 24 Hours (Table) 09/08/24 Range/Units 09:55 HDL Cholesterol 88.80 H (40.00-60.00) mg/dL
--- NOTE | 2024-09-10 11:43 | P.PN ---
Progress Note - Text Progress Note Date: 09/10/24 Interval History: Patient was seen wandering the hallways and was directable and agreeable to sp isaac with real estate underwriter in the office. He mentions feeling well however continues to report OCD rituals, no worsening however no improvements thus far. He rated his anxiety low today, 3-4. He has been attending groups, goal oriented. Discussed with patient the possibility of trying clomipramine in the future if Luvox is ineffective however he was encouraged to continue taking his medications for up to 8 weeks upon discharge to get the max benefit. At this time patient denies any suicidal or homicidal ideations, intent or plan. Patient denies any auditory, visual hallucinations and denies any paranoia or delusions. Patient denies any side effects from the medications and has been compliant with meds. Mental Status Exam: General Appearance: Patient appears to be stated age is alert, directable, and cooperative. He has curly hair with fair grooming and hygiene Behavior: There is evidence of psychomotor restlessness Speech: Patient's speech is fluent and nonpressured. Mood/Affect: Mood is improving mildly, affect is congruent and anxious. Suicidality/Homicidality: Patient denies having any suicidal or homicidal ideation intent or plan. Perceptions: Patient denies any visual hallucinations and denies any auditory hallucinations Though content/process: There is no evidence of any delusional thought content and thought process is linear and goal-directed. Memory and concentration: AOX3, grossly intact for the purposes of this session Judgment and insight: Improving mildly Assessment Major depressive disorder, recurrent OCD Rule out cannabis use disorder Plan: -Patient continues to meet criteria for inpatient psychiatric admission for symptom stabilization and safety. Patient has signed adult voluntary form and medication consent and was placed in patient's chart. -Medications: Increase Luvox to 200 mg at bedtime for depression/OCD, continue Abilify 5 mg at bedtime as an adjunct, hydroxyzine 50 mg as needed for anxiety -When necessary Ativan and Haldol for agitation/aggression. -Labs: Reviewed -SW on board for discharge planning. Encouraged the patient to participate in milieu. Anticipate discharge back home with parents tomorrow
[2024-09-11 01:12] VITALS: RESP 16
[2024-09-11 08:42] VITALS: BP 92/65; PULSE 83; TEMP 97.2
--- NOTE | 2024-09-11 11:39 | P.DS ---
Providers Date of admission: 09/07/24 21:37 Expected date of discharge: 09/11/24 Attending physician: Susy Street MD Consults: 09/08/24 08:58 Consult Physician Routine Consulting Provider: Kate Physician Consult Reason/Comments: H & P w/medical mgmt Do you want consulting provider notified?: Yes Primary care physician: Marky Montes MD - Discharge Diagnosis(es) (1) Major depressive disorder, recurrent Current Visit: Yes Status: Acute Priority: High (2) OCD (obsessive compulsive disorder) Current Visit: Yes Status: Acute Priority: High Hospital Course: Admission HPI: Admission note was completed by typewriter ribbon winder" Patient presented to the hospital with suicidal ideations. Per EPS, "pt states he came to ER because he was experiencing "extreme wanting to go through with suicide." pt presents after returning home to live with parents yesterday (09/06/24). pt had moved to [place] to live with his significant other, [place] pt states that he moved back with family when OCD symptoms began worsening. pt states that he has been experiencing worsening depressive symptoms for the past couple of weeks. pt reports that he has been having intermittent SI during this time, but that the past 3 days have become significantly worse. pt reports that he began to contemplate plans in the past day or two. pt continues to report SI with multiple plans including jumping, OD, car crash, and firearm. pt denies HI and hallucinations. pt reports poor sleep and poor appetite. pt states he is currently eating about 2 meals per day and is eating significantly smaller portions because he cannot focus on eating. No delusional thoughts verbalized. pt cooperative with assessment." patient seen and evaluated on the unit and was agreeable with speaking to typewriter ribbon winder in office. He states he recently moved back to [place] from [place] due to worsening symptoms. He states moving to [place] to be with his girlfriend while she starts her grad school, stating he had a job lined up for him there however he was having difficulties with the amount of time spent doing his OCD rituals that it was becoming overwhelming doing his day-to-day. He mentions moving back here with his parents after staying there for about 4 months. He mentions OCD has worsened since moving to [place] described as having to swallow both before and after he has to do something, explaining that this must have been just right in order for him to feel well. He mentions if he does not swallow at the precise moment, he feels anxious, begins panicking, frustrated. He mentions recently seeing a therapist through a website however once he moved to [place] he was unable to keep these appointments. He mentions being off of his Luvox for several days as he ran out of the prescription. He does see a psychiatrist for this medication. Patient denies any suicidal or homicidal ideations intent or plan. At this time patient denies any auditory or visual hallucinations. Patient denies any flight of ideas racing thoughts and increased in goal directed behavior. Patient admits to using occasional alcohol, denying any cannabis or nicotine." Hospital course: Upon admission to the unit patient was directable and agreeable to commence treatment and signed adult voluntary form.. Patient got along well with other patients on the unit and followed unit protocol. Patient was compliant with the medications and denied any side effects throughout hospital course. Patient was continued on Luvox and this was increased to 200 mg at bedtime for depression/OCD, Risperdal was discontinued and Abilify was started at 5 mg at bedtime as an adjunct, trazodone 50 mg at bedtime for insomnia. Patient spoke of his stressors and engaged in therapy both group and individual. Patient was also seen by medical team for history and physical exam. Throughout the course of the hospitalization patient gradually improved with regards to mood, anxiety, sleep and returned back to their baseline level of functioning. On the day of discharge patient denied any suicidal or homicidal ideations intent or plan denied any auditory or visual hallucinations. The patient denied any access to guns or weapons. Patient denied any paranoia and did not endorse any delusions. Patient does not have a significant history of substance abuse and was counseled on abstaining from all substances including alcohol and marijuana. Patient was also counseled on the medications and need for regular compliance and was encouraged to follow-up with their outpatient appointment for mental health and also for primary care. Prior to discharge a family meeting will be arranged by long term care social worker to answer any questions and ensure safety upon discharge including making sure that guns/weapons are either removed from the home or locked away. Patient to be discharged back home with parents and follow-up with [facility]. Mental status exam: General Appearance: Patient appears to be stated age is alert, pleasant, and cooperative. Patient is in no acute distress and has fair hygiene and grooming. He has curly hair Behavior: Patient is calmly seated without any agitated behavior. There is some evidence of psychomotor restlessness Speech: Patient's speech is fluent and nonpressured. Mood/Affect: Patient reports their mood is "good", affect is congruent and euthymic. Suicidality/Homicidality: Patient denies having any suicidal or homicidal ideation intent or plan. Perceptions: Patient denies any auditory or visual hallucinations. Though content/process: There is no evidence of any delusional thought content and thought process is linear and goal-directed. Memory and concentration: AOX3, grossly intact for the purposes of this session. Can spell "WORLD" backwards correctly. Judgment and insight: Good Impression: Major depressive disorder, recurrent OCD Plan: -Continue with discharge today as patient has improved and stabilized psychiatrically and is not currently an imminent threat to themself and/or others. -Continue medications: Luvox 200 mg at bedtime, Abilify 5 mg at bedtime, trazodone 50 mg as needed at bedtime -Patient was counseled on the need for medication compliance and appropriate follow-up at mental health and also primary care for medical issues. Patient verbalized understanding and agreed. -Social work to help coordinate patients discharge today arrange for and conduct family meeting to ensure safety upon discharge and answer any questions/concerns. also to ensure safe home environment that guns/weapons are either removed from the home or locked away. Social work also to arrange for patients follow up appointments with [facility] for psychiatric care along with follow up with primary care provider. -Patient counseled on abstaining from recreational drugs and marijuana and alcohol. Was informed/educated on the adverse effects on their physical and mental health. Patient verbally agreed and understood. -Patient was instructed to return to the hospital or seek immediate medical care if their psychiatric or medical symptoms do worsen or reoccur. Abnormal Labs 09/07/24 09/08/24 16:00 09:55 HDL Cholesterol 88.80 H U Benzodiazepines Scrn Detected H U Marijuana (THC) Screen Detected H Vital Signs Temp 97.2 F L 09/11/24 08:41 Pulse 83 09/11/24 08:41 Resp 16 09/11/24 08:41 BP 92/65 09/11/24 08:41 Pulse Ox 97 09/11/24 08:41 FiO2 Allergies Allergy/AdvReac Type Severity Reaction Status Date / Time No Known Allergies Allergy Verified 09/07/24 17:35 Patient Condition at Discharge: Stable Plan - Discharge Summary Discharge Rx Participant: Yes New Discharge Prescriptions: New ARIPiprazole [Abilify] 5 mg PO HS 30 Days #30 tab hydrOXYzine pamoate [Vistaril] 50 mg PO Q8HR PRN 15 Days #30 cap PRN Reason: Anxiety traZODone HCL [Desyrel] 50 mg PO HS PRN 30 Days #30 tab PRN Reason: Insomnia Changed fluvoxaMINE MALEATE [Luvox] 200 mg PO HS 30 Days #60 tab Discontinued risperiDONE [RisperDAL] 1 mg PO BID Discharge Medication List ARIPiprazole [Abilify] 5 mg PO HS 30 Days #30 tab 09/11/24 [Rx] fluvoxaMINE MALEATE [Luvox] 200 mg PO HS 30 Days #60 tab 09/11/24 [Rx] hydrOXYzine pamoate [Vistaril] 50 mg PO Q8HR PRN 15 Days #30 cap 09/11/24 [Rx] traZODone HCL [Desyrel] 50 mg PO HS PRN 30 Days #30 tab 09/11/24 [Rx] Follow up Appointment(s)/Referral(s): Psychiatry, [facility] [Other] - 09/12/24 2:15 pm (Tracy Tom 09/12 @ 14:15) Marky Montes MD [Primary Care Provider] - 1-2 days Patient Instructions/Handouts: Depression (DC), Obsessive Compulsive Disorder (DC) Activity/Diet/Wound Care/Special Instructions: [facility] Discharge Info Avoid the use of street drugs and alcohol. Take all medications as prescribed. When you are in need of refills on your medications, please contact your outpatient medical provider and/or outpatient psychiatrist. Please go to your scheduled outpatient appointments for aftercare treatment. If symptoms return or become worse, call the crisis line at or and/or visit the nearest emergency room for assistance. National Suicide and Crisis Lifeline - call or text 848 Discharge Disposition: HOME SELF-CARE
== END 2024-09-11 12:33 | disposition home or self-care (01) | DRG 885 ==
LOC: EC 15:55 → 3MHU 21:37
PROVIDERS: ADMIT Psychiatry & Neurology Psychiatry; ATTEND Psychiatry & Neurology Psychiatry
DX: F33.9 Major depressive disorder, recurrent, unspecified (principal); R45.851 Suicidal ideations; F12.10 Cannabis abuse, uncomplicated; F41.9 Anxiety disorder, unspecified; F42.9 Obsessive-compulsive disorder, unspecified; F90.9 Attention-deficit hyperactivity disorder, unspecified type; G47.00 Insomnia, unspecified; Z79.899 Other long term (current) drug therapy; Z81.8 Family history of other mental and behavioral disorders; Z11.52 Encounter for screening for COVID-19
CPT/HCPCS: 80053; 80061; 80306; 82075; 82248; 83036; 84443; 85025; 87635; 96372; 99285